=== PATIENT | male | born 1995 | race Hispanic/Latino ===

== ENCOUNTER 2017-08-06 05:01 | Emergency (ER) | payer OTHER ==
[~2017-08-06] VITALS: Ht 167.6 cm; Wt 81.8 kg
[2017-08-06 06:19] LABS: BASO % 0.7 % (0.0-1.0); EOS # 0.4 10^3/uL (0.0-0.50); EOS % 7.7 % (0.0-3.0); IMMATURE GRANULOCYTE % 0.6 % (0-0); LYMPH # 2.2 10^3/uL (1.5-6.5); LYMPH % 40.7 % (24.0-44.0); MEAN CORPUSCULAR HEMOGLOBIN 30.5 pg (27.0-33.0); MEAN CORPUSCULAR HGB CONC 35.7 g/dl (32.0-36.5); MEAN CORPUSCULAR VOLUME 85.5 fl (80.0-96.0); MONO # 0.3 10^3/uL (0.0-0.8); MONO % 5.9 % (0.0-5.0); NEUTROPHILS # 2.4 10^3/uL (1.8-7.7); NEUTROPHILS % 44.4 % (36.0-66.0); PLATELET COUNT, AUTOMATED 215 10^3/uL (150-450); RED CELL DISTRIBUTION WIDTH 12.8 % (11.5-14.5); WHITE BLOOD COUNT 5.5 10^3/uL (4.0-10.0)
[2017-08-06 06:23] LABS: INR 0.96
[2017-08-06 06:34] LABS: ANION GAP 9 MEQ/L (8-16); BLOOD UREA NITROGEN 9 MG/DL (7-18); CALCIUM LEVEL 8.6 MG/DL (8.5-10.1); CARBON DIOXIDE LEVEL 25 MEQ/L (21-32); CHLORIDE LEVEL 107 MEQ/L (98-107); CREATININE FOR GFR 0.83 MG/DL (0.70-1.30); GLOMERULAR FILTRATION RATE > 60.0 (>60); GLUCOSE, FASTING 97 MG/DL (70-105); SODIUM LEVEL 141 MEQ/L (136-145)
[2017-08-06 07:16] VITALS: BP 105/58
--- NOTE | 2017-08-06 08:07 | REP ---
PA and lateral chest: The lung gayle are clear. The cardiac size is normal The brittani, mediastinum, and bony thorax are unremarkable. Impression: Negative PA and lateral chest. Signed by Tej Bell MD 08/06/2017 07:57 A
--- NOTE | 2017-08-06 21:08 | ECGEPIP ---
Stationary ECG Study [facility] - ED Test Date: 2017-08-06 Pat Name: SATYA SEBASTIAN Department: Room: - Gender: M Licensing Specialist: : [id number] Requested By: LEA Durbin Order Number: [id number] Reading MD: Alicia Christina Measurements Intervals Oracle Rate: 50 P: 32 LA: 148 QRS: 3 QRSD: 110 T: -8 QT: 420 QTc: 383 Interpretive Statements SINUS BRADYCARDIA NO PRIOR FOR COMPARISON Electronically Signed On 08-06-2017 21:08:10 EDT by Alicia Christina
== END 2017-08-06 07:53 | disposition home or self-care (01) ==
LOC: M ED 05:01
DX: R07.89 Other chest pain (principal); R00.1 Bradycardia, unspecified

== ENCOUNTER 2019-05-09 10:43 | Emergency (ER) | payer OTHER ==
[~2019-05-09] VITALS: Ht 170.2 cm; Wt 87.8 kg
[2019-05-09 10:43] VITALS: BP 139/93
--- NOTE | 2019-05-09 12:07 | REP ---
ULTRASOUND UMBILICUS: Real-time sonographic evaluation of umbilicus performed. There is no evidence of umbilical hernia. Deep to the umbilicus in the soft tissues of the abdominal wall, there is a complex area which measures 8 x 16 x 6 mm. This may represent a hemorrhagic or infected urachal cyst. Electronically Signed by Tej Clemons MD 05/13/2019 05:29 P
--- NOTE | 2019-05-19 20:54 | ED PDOC ---
Post-Departure Follow-Up ft jean gardiner faxed formal report of anoop [place] for fu Gumaro Loyd MD May 19, 2019 20:54
== END 2019-05-09 12:44 | disposition home or self-care (01) ==
LOC: M ED 10:43
DX: R19.05 Periumbilic swelling, mass or lump (principal); X50.0XXA Overexertion from strenuous movement or load, initial encounter; Y92.9 Unspecified place or not applicable

== ENCOUNTER → 2019-06-06 | Outpatient (CLI) | payer OTHER ==
[~2019-06-06] MED LIST: GASTROGRAFIN SOLUTION 30ML (Q9963) As Ordered ONE; IBUP200C25 PO; ISOVUE-300 61% 100ML VIAL (Q9967) As Ordered ONE; ISOVUE-370 76% 100ML VIAL (Q9967) As Ordered ONE
--- NOTE | 2019-06-06 14:02 | REP ---
REASON FOR EXAM: Urachal malformation. No priors for comparison. CONTRAST: 100 mL Isovue-370. The lung bases are clear. The liver, gallbladder, spleen, pancreas, adrenal glands, and kidneys are normal. The abdominal aorta and para-aortic regions are normal. The bowel loops and their mesenteries are normal. There is no free fluid or free air. CT PELVIS: The bowel loops and their mesenteries are normal. There is no mass or adenopathy. There is no free fluid or free air. Arising from the superior-anterior urinary bladder wall, there is a minimal threadlike linear density which can be followed superiorly to the level of the umbilicus. There are no cystic or solid masses. There are incidental pelvic phleboliths. Bone window technique throughout the exam shows the osseous structures to be within normal limits. IMPRESSION: There is the most minimal of threadlike urachal remnant, as described above. There are no cystic or solid masses. The examination is otherwise unremarkable. Electronically Signed by Elier Dillard DO 06/06/2019 02:22 P
== END ==
LOC: M RAD 09:24
PROVIDERS: ATTEND Surgery
DX: Q64.4 Malformation of urachus (principal)
CPT/HCPCS: 74177; Q9963; Q9967

== ENCOUNTER → 2019-06-23 | Outpatient (CLI) | payer OTHER ==
[~2019-06-23] MED LIST changes: +CYSTO-CONRAY II 17.2% 250ML VIAL (Q9958) As Ordered ONE; -GASTROGRAFIN SOLUTION 30ML (Q9963) As Ordered ONE; -IBUP200C25 PO; -ISOVUE-300 61% 100ML VIAL (Q9967) As Ordered ONE; -ISOVUE-370 76% 100ML VIAL (Q9967) As Ordered ONE; +LIDOCAINE 2% JELLY 30 ML As Ordered ONE
== END ==
LOC: M RADPRO 11:07
PROVIDERS: ATTEND Surgery
DX: Q64.4 Malformation of urachus (principal)

== ENCOUNTER 2019-09-29 06:01 | Day surgery (SDC) | payer OTHER ==
[~2019-09-29] VITALS: Ht 170.2 cm; Wt 89.8 kg
[~2019-09-29 06:01] MED LIST changes: -CYSTO-CONRAY II 17.2% 250ML VIAL (Q9958) As Ordered ONE; +IBUP200C25 PO; -LIDOCAINE 2% JELLY 30 ML As Ordered ONE
[2019-09-29 06:39] LABS: HEMATOCRIT 43.9 % (42.0-52.0); HEMOGLOBIN 15.6 g/dl (13.5-17.5); MEAN CORPUSCULAR HEMOGLOBIN 30.5 pg (27.0-33.0); MEAN CORPUSCULAR HGB CONC 35.5 g/dl (32.0-36.5); MEAN CORPUSCULAR VOLUME 85.9 fl (80.0-96.0); PLATELET COUNT, AUTOMATED 218 10^3/uL (150-450); RED BLOOD COUNT 5.11 10^6/uL (4.30-6.10)
[2019-09-29] MEDS ORDERED: ceFAZolin SOD 2 GM in IV 1 EA IV ONE (07:00)
[2019-09-29] MEDS ORDERED: NS 1,000 ML IV ONE (07:00)
[2019-09-29] MEDS ORDERED: PROPOFOL 200 MG/20 ML VIAL As Ordered ONE (07:03)
[2019-09-29] MEDS ORDERED: dexameTHASONE 4 MG/ML 1ML VIAL (J1100) As Ordered ONE (07:03)
[2019-09-29] MEDS ORDERED: ONDANSETRON 4MG/2ML VIAL (J2405) As Ordered ONE (07:03)
[2019-09-29] MEDS ORDERED: LIDOCAINE 2% INJ 100 MG/5 ML SDV (FOR ANES.) As Ordered ONE (07:03)
[2019-09-29] MEDS ORDERED: KETOROLAC 60 MG/2 ML VIAL (J1885) As Ordered ONE (07:03)
[2019-09-29] MEDS ORDERED: ROCURONIUM BROMIDE 50 MG/5 ML VIAL As Ordered ONE ×2 (07:03→08:41)
[2019-09-29] MEDS ORDERED: fentaNYL 250 MCG/5 ML INJECTION (J3010) As Ordered ONE (07:08)
[2019-09-29] MEDS ORDERED: MIDAZOLAM INJ 2 MG/2 ML VIAL (J2250) As Ordered ONE (07:09)
[2019-09-29] MEDS ORDERED: LACRILUBE (AKWA TEARS) OPHTH OINT 3.5 GM As Ordered ONE (07:47)
[2019-09-29] MEDS ORDERED: SUGAMMADEX SODIUM 500 MG/5 ML VIAL (BRIDION) As Ordered ONE (07:53)
[2019-09-29] MEDS ORDERED: ACETAMINOPHEN 1000MG 100ML IV BTL (OFIRMEV) (J0131 PER 10MG) As Ordered ONE (07:59)
[2019-09-29] MEDS ORDERED: LR 1,000 ML IV ONE (08:00)
[2019-09-29] MEDS: BUPIVACAINE/EPIN 0.25% 30 ML VIAL As Ordered ONE (08:00)
[2019-09-29] MEDS ORDERED: fentaNYL 100 MCG/2 ML INJECTION (J3010) As Ordered ONE (09:20)
[2019-09-29] MEDS ORDERED: oxyCODONE 5MG TAB As Ordered ONE (09:20)
[2019-09-29] MEDS: fentaNYL 100 MCG/2 ML INJECTION (J3010) IV PRN ×4 (09:22→09:37)
[2019-09-29] MEDS: oxyCODONE 5MG TAB PO PRN ×2 (09:23→09:57)
[2019-09-29] MEDS ORDERED: KETOROLAC 30 MG/ML VIAL (J1885) IV PRN (09:30)
[2019-09-29] MEDS ORDERED: LR 1,000 ML IV SCH (09:30)
[2019-09-29] MEDS ORDERED: NORCO, ANEXSIA 5/325MG TABLET (HYDROcodone/ACETAMINOPHEN) PO PRN (10:31)
[2019-09-29 11:35] VITALS: BP 124/71
--- NOTE | 2019-09-30 19:18 | RO ---
DATE OF PROCEDURE: 09/29/2019 PREOPERATIVE DIAGNOSIS: Urachal sinus. POSTOPERATIVE DIAGNOSIS: Urachal sinus. PROCEDURE: Robotic take down and removal of urachal sinus. SURGEON: Dr. Tej Barry EXCAVATOR OPERATOR: Sheree Allen ANESTHESIA: General. ESTIMATED BLOOD LOSS: 5 mL. COMPLICATIONS: None. INDICATIONS FOR PROCEDURE: The patient is a 24-year-old male who presents with pain and drainage from his umbilicus that has been going on for a while. He had a CT scan that showed likely patent urachus. The recommendation was to proceed with surgical resection. Risk and benefits of procedure not limited to but including bleeding, infection, hernia formation, damage to surrounding structures, and need for further surgery were discussed in detail with the patient. Informed consent was obtained and procedure was planned. DESCRIPTION OF PROCEDURE: The patient was brought back to operating room seven. After sufficient sedation, the abdomen was sterilely prepped and draped. Next, a time-out was done to confirm proper patient, proper procedure. Following that, an 8 mm incision made in the left lower quadrant, Veress needle inserted and the abdomen was insufflated to 15 mmHg. Veress needle was then removed, and an 8 mm Optiview port was used to gain access to the abdomen. Once the abdomen was entered, another 8 mm port was placed supraumbilically in the midline, another inguinal port in the right upper quadrant. Ports were then connected to the robot. Next,, from the console, the preperitoneal space was entered just superior to the umbilicus in a horizontal incision. The preperitoneum was then dissected inferiorly surrounding the umbilicus down towards the dome of the bladder. There was a cord- like structure identified and coming through a small umbilical hernia. As the structure went distally, it bifurcated into two separate structures, likely representing the obliterated umbilical ligament. I did not identify specific urachus. It was likely within the structures, specifically the cord-like structure coming directly out of the umbilical hernia as it was separate from the fascia. I was able to place clips on this proximally and distally, removed the segment, then took an #0 Stratafix suture to close the defect at the umbilicus. Once that was completed, a #2-0 V-Loc was used to close the peritoneal defect, thus ending procedure. The abdomen was then desufflated. Skin incisions were closed with #4-0 Vicryl subcuticular sutures. The abdomen was cleaned and dried. Steri-Strips, 2x2s and tape were applied, thus ending procedure.
== END 2019-09-29 11:41 | disposition home or self-care (01) ==
LOC: M SDC 06:01
PROVIDERS: ATTEND Surgery
DX: Q64.4 Malformation of urachus (principal); Z87.891 Personal history of nicotine dependence
CPT/HCPCS: 36415; 51999; 85027; 88304; J0131; J0690; J1100; J1885; J2250; J2405; J3010